=== PATIENT | male | born 1995 | race African-American/Black ===

== ENCOUNTER 2021-05-09 16:31 | Inpatient (IN) | payer SELFPAY ==
[~2021-05-09] VITALS: Ht 193 cm; Wt 103.6 kg
[2021-05-09] MEDS ORDERED: LACTATED RINGERS 1000ML 1,000 ML IV ONE (17:00)
[2021-05-09] MEDS ORDERED: 0.9%NACL 1000ML 1,000 ML IV ONE (17:30)
[2021-05-09 17:52] LABS: BASOPHILS % (AUTO) 0.4 % (0.0-5.0); EOSINOPHILS % (AUTO) 5.8 % (0.0-8.0); LYMPHOCYTES % (AUTO) 35.9 % (21.0-51.0); MEAN CORPUSCULAR HEMOGLOBIN 26.3 pg (27.0-33.0); MEAN CORPUSCULAR HGB CONC 31.8 g/dL (32.0-36.0); MEAN CORPUSCULAR VOLUME 82.9 fL (79-99); NEUTROPHILS % (AUTO) 44.6 % (40.0-77.0); PLATELET COUNT (AUTO) 325 K/uL (130-400); RED BLOOD CELL COUNT(AUTO) 5.43 MIL/uL (4.50-6.20); RED CELL DISTRIBUTION WIDTH 14.1 % (11.0-15.5); WHITE BLOOD COUNT (AUTO) 7.6 K/uL (4.8-10.8)
[2021-05-09 18:25] LABS: ALBUMIN 3.9 g/dL (3.5-5.0); BILIRUBIN,TOTAL 0.3 mg/dL (0.2-1.0); CREATININE 1.4 mg/dL (0.5-1.5); TOTAL PROTEIN, SERUM 7.7 g/dL (6.0-8.3)
[2021-05-09] MEDS ORDERED: DEXTROSE 50%-WATER 50 ML DISP.SYRIN IV ONE ×2 (18:34→19:00)
[2021-05-09 19:13] VITALS: BP 132/65
[2021-05-09] MEDS ORDERED: ONDANSETRON 4MG INJ IV PRN (19:30)
[2021-05-09] MEDS ORDERED: ACETAMINOPHEN 325 MG TAB PO PRN ×2 (19:30)
[2021-05-09 20:08] LABS: APPEARANCE,URINE Clear (CLEAR); BILIRUBIN,URINE Negative (NEGATIVE); COLOR,URINE Yellow (YELLOW); GLUCOSE, URINE (UA) Negative (NEGATIVE); KETONES,URINE Trace mg/dL (NEGATIVE); LEUKOCYTE ESTERASE ,URINE Negative (NEGATIVE); NITRATE,URINE Negative (NEGATIVE); OCCULT BLOOD,URINE Negative (NEGATIVE); PH,URINE 5.5 (5.0-8.0); PROTEIN,URINE Negative (NEGATIVE)
[2021-05-09 20:15] LABS: AMPHET/METH SCREEN,URINE NEGATIVE (NEGATIVE); BARBITURATE SCREEN, URINE NEGATIVE (NEGATIVE); BENZODIAZEPINES SCREEN,URINE NEGATIVE (NEGATIVE); CANNABINOID SCREEN,URINE NEGATIVE (NEGATIVE); COCAINE SCREEN,URINE NEGATIVE (NEGATIVE); OPIATE SCREEN,URINE NEGATIVE (NEGATIVE); PHENCYCLIDINE SCREEN,URINE NEGATIVE (NEGATIVE)
[2021-05-09] MEDS: LACTATED RINGERS 1000ML 1,000 ML IV SCH (20:21)
[2021-05-09 20:32] LABS: INR 1.08 (0.85-1.15); PROTHROMBIN TIME 11.7 SEC (9.6-11.6)
[2021-05-09] MEDS: FAMOTIDINE 20MG TAB PO SCH (21:54)
[2021-05-09 21:55] VITALS: BP 123/71
[2021-05-10] MEDS: LACTATED RINGERS 1000ML 1,000 ML IV SCH ×3 (03:30→23:23)
[2021-05-10 03:40] VITALS: BP 120/70
[2021-05-10 04:05] VITALS: BP 110/68
[2021-05-10 04:29] LABS: HEMATOCRIT 37.6 % (42-54); MEAN CORPUSCULAR HEMOGLOBIN 25.9 pg (27.0-33.0); MEAN CORPUSCULAR HGB CONC 31.6 g/dL (32.0-36.0); MEAN CORPUSCULAR VOLUME 81.7 fL (79-99); RED BLOOD CELL COUNT(AUTO) 4.6 MIL/uL (4.50-6.20); RED CELL DISTRIBUTION WIDTH 14.1 % (11.0-15.5); WHITE BLOOD COUNT (AUTO) 6.1 K/uL (4.8-10.8)
[2021-05-10] MEDS ORDERED: QUET100T34 PO (04:41)
[2021-05-10] MEDS ORDERED: OLAN15TA36 PO (04:41)
[2021-05-10] MEDS ORDERED: QUET200T30 PO (04:41)
[2021-05-10] MEDS ORDERED: LORA2TAB80 PO (04:41)
[2021-05-10 07:49] VITALS: BP 105/68
[2021-05-10] MEDS: ENOXAPARIN SODIUM 40 MG/0.4 ML SYRINGE SQ SCH ×2 (09:00→09:39)
[2021-05-10] MEDS ORDERED: QUETIAPINE FUMARATE 100 MG TAB PO PRN ×2 (09:30)
[2021-05-10] MEDS ORDERED: LORAZEPAM 2 MG TABLET PO PRN (09:30)
[2021-05-10] MEDS: FAMOTIDINE 20MG TAB PO SCH ×2 (09:39→21:00)
[2021-05-10 11:50] VITALS: BP 144/88
[2021-05-10] MEDS ORDERED: ALBUTEROL INHALER 90MCG/INH IH PRN (15:00)
[2021-05-10 16:00] VITALS: BP 143/106
[2021-05-10] MEDS ORDERED: HYDROXYZINE 25 MG TABLET PO PRN (17:00)
[2021-05-10 19:12] LABS: HEMOGLOBIN A1C 5.5 % (4.0-6.0)
[2021-05-10 20:00] VITALS: BP 130/62
[2021-05-10] MEDS: HYDROXYZINE 25 MG TABLET PO SCH (21:00)
[2021-05-10] MEDS: OLANZAPINE ODT 5 MG TAB PO SCH (21:00)
[2021-05-10] MEDS: FLUTICASONE/VILANTEROL 1 EACH AER.POW.BA IH SCH (21:00)
[2021-05-11] VITALS: BP 142/63
[2021-05-11 04:00] VITALS: BP 127/69
[2021-05-11 06:50] LABS: BASOPHILS % (AUTO) 0.4 % (0.0-5.0); EOSINOPHILS % (AUTO) 4.2 % (0.0-8.0); HEMATOCRIT 39.2 % (42-54); LYMPHOCYTES % (AUTO) 38.3 % (21.0-51.0); MEAN CORPUSCULAR HEMOGLOBIN 26.2 pg (27.0-33.0); MEAN CORPUSCULAR HGB CONC 31.9 g/dL (32.0-36.0); MONOCYTES % (AUTO) 12.9 % (3.0-13.0); PLATELET COUNT (AUTO) 259 K/uL (130-400); RED BLOOD CELL COUNT(AUTO) 4.78 MIL/uL (4.50-6.20); WHITE BLOOD COUNT (AUTO) 5.7 K/uL (4.8-10.8)
[2021-05-11 07:34] LABS: CREATININE 1.1 mg/dL (0.5-1.5); POTASSIUM 3.8 mmol/L (3.5-5.1)
[2021-05-11 08:00] VITALS: BP 120/74
[2021-05-11] MEDS: ENOXAPARIN SODIUM 40 MG/0.4 ML SYRINGE SQ SCH (09:00)
[2021-05-11] MEDS: FLUTICASONE/VILANTEROL 1 EACH AER.POW.BA IH SCH (09:00)
[2021-05-11] MEDS: FAMOTIDINE 20MG TAB PO SCH ×2 (09:00→20:22)
[2021-05-11] MEDS: OLANZAPINE ODT 5 MG TAB PO SCH ×2 (10:24→20:22)
[2021-05-11 12:00] VITALS: BP 112/68
[2021-05-11 16:00] VITALS: BP 122/61
[2021-05-11] MEDS: LACTATED RINGERS 1000ML 1,000 ML IV SCH ×2 (17:25→17:45)
[2021-05-11 20:00] VITALS: BP 122/55
[2021-05-11] MEDS: HYDROXYZINE 25 MG TABLET PO SCH (20:21)
[2021-05-11] MEDS ORDERED: ALBUTEROL 0.083% 2.5 MG/3 ML INH IH PRN (21:00)
[2021-05-12] VITALS: BP 121/59
[2021-05-12] MEDS: LACTATED RINGERS 1000ML 1,000 ML IV SCH ×4 (00:09→21:20)
[2021-05-12] MEDS: ALBUTEROL 0.083% 2.5 MG/3 ML INH IH SCH ×4 (01:43→18:41)
[2021-05-12 04:00] VITALS: BP 93/54
[2021-05-12 05:58] LABS: BASOPHILS % (AUTO) 0.5 % (0.0-5.0); EOSINOPHILS % (AUTO) 6.5 % (0.0-8.0); HEMATOCRIT 40.7 % (42-54); LYMPHOCYTES % (AUTO) 46.9 % (21.0-51.0); MEAN CORPUSCULAR HEMOGLOBIN 25.8 pg (27.0-33.0); MEAN CORPUSCULAR HGB CONC 31.2 g/dL (32.0-36.0); MEAN CORPUSCULAR VOLUME 82.7 fL (79-99); MONOCYTES % (AUTO) 12.3 % (3.0-13.0); NEUTROPHILS % (AUTO) 33.6 % (40.0-77.0); PLATELET COUNT (AUTO) 228 K/uL (130-400); RED BLOOD CELL COUNT(AUTO) 4.92 MIL/uL (4.50-6.20); RED CELL DISTRIBUTION WIDTH 14.1 % (11.0-15.5); WHITE BLOOD COUNT (AUTO) 4.3 K/uL (4.8-10.8)
[2021-05-12 06:31] LABS: ALBUMIN 3.2 g/dL (3.5-5.0); BILIRUBIN,TOTAL 0.4 mg/dL (0.2-1.0); CREATININE 1.1 mg/dL (0.5-1.5); TOTAL PROTEIN, SERUM 6.4 g/dL (6.0-8.3)
[2021-05-12] MEDS: BUDESONIDE 0.5 MG/2 ML INH IH SCH ×3 (06:53→18:42)
[2021-05-12 07:52] VITALS: BP 114/70
[2021-05-12] MEDS: ENOXAPARIN SODIUM 40 MG/0.4 ML SYRINGE SQ SCH (09:00)
[2021-05-12] MEDS: OLANZAPINE ODT 5 MG TAB PO SCH ×2 (09:00→20:47)
[2021-05-12] MEDS: FAMOTIDINE 20MG TAB PO SCH ×2 (09:00→20:46)
[2021-05-12 12:00] VITALS: BP 106/51
[2021-05-12 16:00] VITALS: BP 130/72
[2021-05-12 20:00] VITALS: BP 120/84
[2021-05-12] MEDS: HYDROXYZINE 25 MG TABLET PO SCH (20:46)
[2021-05-13] VITALS: BP 107/68
[2021-05-13] MEDS: ALBUTEROL 0.083% 2.5 MG/3 ML INH IH SCH ×3 (00:10→11:38)
[2021-05-13 04:00] VITALS: BP 115/45
[2021-05-13] MEDS: LACTATED RINGERS 1000ML 1,000 ML IV SCH (04:24)
[2021-05-13 05:48] LABS: BASOPHILS % (AUTO) 0.5 % (0.0-5.0); EOSINOPHILS % (AUTO) 5.1 % (0.0-8.0); HEMATOCRIT 39.2 % (42-54); LYMPHOCYTES % (AUTO) 36.3 % (21.0-51.0); MEAN CORPUSCULAR HEMOGLOBIN 25.7 pg (27.0-33.0); MEAN CORPUSCULAR HGB CONC 31.1 g/dL (32.0-36.0); MEAN CORPUSCULAR VOLUME 82.7 fL (79-99); MONOCYTES % (AUTO) 10.2 % (3.0-13.0); NEUTROPHILS % (AUTO) 47.7 % (40.0-77.0); PLATELET COUNT (AUTO) 228 K/uL (130-400); RED BLOOD CELL COUNT(AUTO) 4.74 MIL/uL (4.50-6.20); WHITE BLOOD COUNT (AUTO) 6.1 K/uL (4.8-10.8)
[2021-05-13 06:19] LABS: ALBUMIN 2.9 g/dL (3.5-5.0); BILIRUBIN,TOTAL 0.1 mg/dL (0.2-1.0); POTASSIUM 3.6 mmol/L (3.5-5.1)
[2021-05-13] MEDS: BUDESONIDE 0.5 MG/2 ML INH IH SCH (06:19)
[2021-05-13] MEDS: FAMOTIDINE 20MG TAB PO SCH (09:59)
[2021-05-13] MEDS: OLANZAPINE ODT 5 MG TAB PO SCH (09:59)
[2021-05-13] MEDS: ENOXAPARIN SODIUM 40 MG/0.4 ML SYRINGE SQ SCH (10:07)
[2021-05-13 11:44] VITALS: BP 140/77
[2021-05-13] MEDS ORDERED: HYDR-3421 PO (12:34)
[2021-05-13] MEDS ORDERED: HYDR-3422 PO (12:35)
== END 2021-05-13 15:22 | disposition home or self-care (01) | DRG 558 ==
LOC: EDH 16:31 → EDHIP 16:32 → OBSVTOIN 16:32 → 3DH 05-10 04:21
PROVIDERS: ADMIT Internal Medicine; ATTEND Internal Medicine
DX: M62.82 Rhabdomyolysis (principal); E86.0 Dehydration; E88.89 Other specified metabolic disorders; F20.9 Schizophrenia, unspecified; J45.909 Unspecified asthma, uncomplicated; R73.9 Hyperglycemia, unspecified; Z20.822 Contact with and (suspected) exposure to COVID-19; F41.9 Anxiety disorder, unspecified; F41.1 Generalized anxiety disorder
CPT/HCPCS: 36415; 70450; 76705; 80048; 80053; 80305; 81003; 82550; 82948; 83036; 83874; 84443; 84484; 85025; 85027; 85610; 85651; 87635; 94640; 94664; G0378; J1650; J7030; J7070; J7120